=== PATIENT | female | born 1950 | race Caucasian/White ===

== ENCOUNTER 2017-07-29 13:18 | Emergency (ER) | payer OTHER ==
[~2017-07-29] VITALS: Wt 66.0 kg
[2017-07-29] MEDS ORDERED: ONDANSETRON 4 MG INJ IV STA (15:27)
[2017-07-29] MEDS ORDERED: morphine 4 MG/ML VIAL IV STA (15:27)
[2017-07-29] MEDS ORDERED: SOD CHLORIDE 0.9% 1,000 ML IV STA (15:27)
[2017-07-29] MEDS ORDERED: DIPHENHYDRAMINE 50 MG INJ IV ONE (15:30)
--- NOTE | 2017-07-29 15:40 | ERD ---
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 The patient describes at least 3 days of symptoms that include diffuse generalized abdominal pain, possibly worse the left lower quadrant with constipation. She describes 2 episodes of nonbloody nonbilious emesis. Prior surgical history is hysterectomy. She also describes dysuria urgency or frequency. She describes the abdominal pain is 8 out of 10 and constant. ROS All systems reviewed and are negative except as per history of present illness. Medications Home Meds Active Scripts Cephalexin* (Keflex*) 500 Mg Capsule, 500 MG PO BID for 7 Days, CAP Prov:DELORES MORRIS MD 07/29/17 Allergies Allergies: Coded Allergies: No Known Allergy (Verified Allergy, Unknown, 02/22/09) PMhx/Soc Hx Alcohol Use: No Hx Substance Use: No Hx Tobacco Use: No Smoking Status: Never smoker FmHx Family History: No diabetes Physical Exam Vitals Vital Signs Date Time Temp Pulse Resp B/P Pulse Ox O2 Delivery O2 Flow Rate FiO2 07/29/17 13:21 98.1 105 20 139/75 99 Physical Exam General: Well developed, well nourished, no acute distress Head: Normocephalic, atraumatic Eyes: Pupils equally reactive, EOM intact ENT: Moist mucous membranes Neck: Supple, no lymphadenopathy Respiratory: Lungs clear bilaterally, no distress Cardiovascular: RRR, no murmurs, rubs, or gallops Abdominal: Soft, inconsistent but generalized abdominal tenderness worse the left lower quadrant without peritonitis : Deferred MSK: No edema, no unilateral swelling, 5/5 strength Neurologic: Alert and oriented, moving all extremities, normal speech, no focal weakness, no cerebellar signs Skin: No rash Psych: Normal mood Result Diagram: 07/29/17 1525 07/29/17 1525 Results 24 hrs Laboratory Tests Test 07/29/17 15:25 White Blood Count 10.010^3/ul Red Blood Count 4.8410^6/ul Hemoglobin 14.1g/dl Hematocrit 41.0% Mean Corpuscular Volume 84.7fl Mean Corpuscular Hemoglobin 29.1pg Mean Corpuscular Hemoglobin Concent 34.4g/dl Red Cell Distribution Width 13.8% Platelet Count 21046^3/UL Mean Platelet Volume 10.0fl Neutrophils % 63.5% Lymphocytes % 22.7% Monocytes % 12.8% Eosinophils % 0.4% Basophils % 0.3% Nucleated Red Blood Cells % 0.0/100WBC Neutrophils # 6.410^3/ul Lymphocytes # 2.310^3/ul Monocytes # 1.310^3/ul Eosinophils # 0.010^3/ul Basophils # 0.010^3/ul Nucleated Red Blood Cells # 0.010^3/ul Prothrombin Time 12.8Sec Prothrombin Time Ratio 1.0 INR International Normalized Ratio 0.96 Activated Partial Thromboplast Time 33.3Sec Urine Color YELLOW Urine Clarity SLIGHTLY CLOUDY Urine pH 6.0 Urine Specific Shidler 1.025 Urine Ketones 2+mg/dL Urine Nitrite NEGATIVEmg/dL Urine Bilirubin NEGATIVEmg/dL Urine Urobilinogen 1+mg/dL Urine Leukocyte Esterase 2+Deandre/ul Urine Microscopic RBC 3/HPF Urine Microscopic WBC 32/HPF Urine Squamous Epithelial Cells FEW/HPF Urine Mucus FEW/HPF Urine Hemoglobin 1+mg/dL Urine Glucose NEGATIVEmg/dL Urine Total Protein 1+mg/dl Sodium Level 139mmol/L Potassium Level 3.6mmol/L Chloride Level 99mmol/L Carbon Dioxide Level 30mmol/L Anion Gap 14 Blood Urea Nitrogen 18mg/dl Creatinine 0.75mg/dl Glucose Level 110mg/dl Calcium Level 8.7mg/dl Total Bilirubin 1.0mg/dl Direct Bilirubin 0.00mg/dl Indirect Bilirubin 1.0mg/dl Aspartate Amino Transf (AST/SGOT) 36IU/L Alanine Aminotransferase (ALT/SGPT) 60IU/L Alkaline Phosphatase 117IU/L Troponin I 0.047ng/ml Total Protein 7.8g/dl Albumin 4.5g/dl Globulin 3.30g/dl Albumin/Globulin Ratio 1.36 Lipase 69U/L Current Medications Medications (Trade) Dose Ordered Sig/Ana Route PRN Reason Start Time Stop Time Status Last Admin Dose Admin Sodium Chloride (NS) 1,000 ml @ 1,000 mls/hr Q1H STAT IV 07/29/17 15:27 07/29/17 16:26 DC 07/29/17 15:42 Morphine Sulfate (morphine) 4 mg ONCE STAT IV 9/13/17 15:27 07/29/17 15:29 DC 07/29/17 15:42 Ondansetron HCl (Zofran Inj) 4 mg ONCE STAT IV 07/29/17 15:27 07/29/17 15:29 DC 07/29/17 15:42 Diphenhydramine HCl 25 mg 25 mg ONCE ONCE IV 07/29/17 15:30 07/29/17 15:31 DC 07/29/17 15:41 Ceftriaxone Sodium (Rocephin) 50 ml @ 100 mls/hr ONCE ONCE IVPB 07/29/17 17:00 07/29/17 17:29 DC Procedures/MDM EKG, MONITORS, & DIAGNOSTIC IMAGING: EKG: I reviewed and interpreted a 12-lead EKG. Rhythm: Normal sinus rhythm Ectopy: None Intervals: No abnormalities ST segments: No elevations or depressions T waves: No contiguous inversions CT abdomen and pelvis: IMPRESSION: 1. Circumferential wall edema involving the ascending colon with mild pericolonic fat stranding. The findings may represent infectious or inflammatory colitis. 2. Gallbladder wall edema with questionable minimal pericholecystic fat stranding. If there is concern for acute cholecystitis, consider HIDA can. 3. Lumbar degenerative enthesopathy as above. 4. 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 5. Small pericardial effusion. RPTAT: ELANA Gallbladder ultrasound: IMPRESSION: Gallbladder wall thickening appears to be secondary to contraction. No gallstones are seen. If clinical concern for acalculous cholecystitis HIDA scan can be obtained for further evaluation. RPTAT: AADD LAB INTERPRETATION: Urinary tract infection noted, normal bilirubin, normal LFTs, normal lipase, no evidence of hepatobiliary obstruction, normal white count, no left shift MEDICAL DECISION MAKING: The patient presents with generalized abdominal pain nausea vomiting and constipation with an abdominal surgical history. There is a very broad differential that includes small bowel obstruction the lower clinical concern for the process. Consider diverticulitis. This is possibly related to constipation. The patient is a difficult historian. She additionally describes some pruritus. Consider possible hepatobiliary process. Given the patient's difficulty localizing symptoms with generalized abdominal pain and surgical history with the age of 67 CT imaging would be appropriate. The patient will benefit from laboratory testing, symptom control and reevaluation. Very low clinical concern for cardiac etiology but EKG and troponin might be reasonable given the patient's age. ER COURSE: The patient was given IV fluids and pain medication and Benadryl. The patient is resting comfortably. On repeat examination the patient describes complete resolution of symptoms. On repeat abdominal exam she has mild suprapubic tenderness but no tenderness to the right upper quadrant or right lower quadrant. She is a negative Nayak sign. Her diagnostic imaging did reveal gallbladder wall thickening but this is nonspecific. The patient has absolutely no tenderness to the right upper quadrant of the abdomen. She has no leukocytosis no left shift no evidence of hepatobiliary obstruction on LFT profile. I do not believe this is consistent with a calculus cholecystitis or cholecystitis at all. I do not believe the patient requires an emergent HIDA scan. The patient does have a urinary tract infection and was given ceftriaxone in the emergency department will be discharged home on Keflex. She was advised to return for any worsening symptoms including right upper quadrant abdominal pain or fever. She was also advised that she may need to see a general surgeon if symptoms persist or if the patient starts to develop symptomatic gallbladder disease. At this time the patient is resting comfortably, asymptomatic and ready for discharge. I kept the patient and/or family informed of laboratory and diagnostic imaging results throughout the emergency room course. DISPOSITION PLAN: We discussed follow up with the patient's primary care doctor within 24 to 48 hours as needed. We also discussed return to the emergency room for worsening symptoms or worsening condition. Outpatient referral: [None required] Discharge Medications: Keflex Departure Diagnosis: Primary Impression: UTI (urinary tract infection) Urinary tract infection type: acute cystitis Hematuria presence: without hematuria Qualified Code: N30.00 - Acute cystitis without hematuria Additional Impression: Abdominal pain Abdominal location: generalized Qualified Code: R10.84 - Generalized abdominal pain Condition: Stable DELORES MORRIS MD Jul 29, 2017 15:40
[2017-07-29 15:58] LABS: BASOPHILS % 0.3 % (0.0-2.0); EOSINOPHILS % 0.4 % (0.0-7.0); HEMOGLOBIN 14.1 g/dl (12.0-16.0); LYMPHOCYTES # 2.3 10^3/ul (0.8-2.9); LYMPHOCYTES % 22.7 % (15.0-51.0); MEAN CORPUSCULAR HEMOGLOBIN 29.1 pg (29.0-33.0); MEAN CORPUSCULAR HGB CONC 34.4 g/dl (32.0-37.0); MEAN CORPUSCULAR VOLUME 84.7 fl (82.0-101.0); MONOCYTE # 1.3 10^3/ul (0.3-0.9); MONOCYTES % 12.8 % (0.0-11.0); NEUTROPHIL # 6.4 10^3/ul (1.6-7.5); NEUTROPHILS % 63.5 % (39.0-77.0); PLATELET COUNT 146 10^3/UL (140-415); RED BLOOD COUNT 4.84 10^6/ul (4.20-5.40); RED CELL DISTRIBUTION WIDTH 13.8 % (11.5-14.5)
[2017-07-29 16:16] LABS: INR 0.96; PROTIME 12.8 Sec (12.2-14.2)
--- NOTE | 2017-07-29 16:16 | RADRPT ---
PROCEDURE: Right upper quadrant abdominal ultrasound. CLINICAL INDICATION: Abdominal pain TECHNIQUE: Ocampo scale and color doppler ultrasound images of the right upper quadrant of the abdom en. COMPARISON: None FINDINGS: Pancreas: Visualized portions appear of normal echogenicity without focal lesions. Liver: Morphology:Normal in size. Contour:Normal, no evidence of nodularity. Echogenicity: Normal. Focal lesions:None. Main portal vein: Patent with hepatopetal flow. Biliary System: Gallbladder wall: Mild wall thickening appears to be secondary to contraction. No definite evidence of gallbladder wall edema. Gallstones: None. Intrahepatic bile ducts: Normal caliber. Common bile duct diameter (mm): 5.7 Kidneys: Right length (cm) : 9.2 Right cortical thickness: Normal. Echogenicity: Normal. Hydronephrosis: None. Renal calculi: None. Focal lesions: None. Free fluid/ascites: None. Abdominal aorta: Normal caliber of the visualized segments. Other findings: None. IMPRESSION: Gallbladder wall thickening appears to be secondary to contraction. No gallstones are seen. If clinical concern for acalculous cholecystitis HIDA scan can be obtained for further evaluation. RPTAT: AADD .Christiano Dewitt MD, MD Date Time Electronically viewed and signed by .Christiano Dewitt MD, on 07/29/2017 16:16 .B/
[2017-07-29 16:17] LABS: PARTIAL THROMBOPLASTIN TIME 33.3 Sec (25.0-35.0)
[2017-07-29 16:18] LABS: ALBUMIN 4.5 g/dl (3.3-4.9); ALBUMIN/GLOBULIN RATIO 1.36; CALCIUM 8.7 mg/dl (8.4-10.2); CREATININE 0.75 mg/dl (0.44-1.00); POTASSIUM 3.6 mmol/L (3.5-5.1); TOTAL PROTEIN 7.8 g/dl (6.1-8.1)
[2017-07-29 16:25] LABS: ADD UMIC YES; UR ASCORBIC ACID NEGATIVE (NEGATIVE); UR BILIRUBIN (Dip) NEGATIVE (NEGATIVE); UR BLOOD (Dip) 1+ mg/dL (NEGATIVE); UR CLARITY SLIGHTLY CLOUDY (CLEAR); UR COLOR YELLOW (YELLOW); UR GLUCOSE (Dip) NEGATIVE (NEGATIVE); UR KETONES (Dip) 2+ mg/dL (NEGATIVE); UR LEUKOCYTE ESTERASE (Dip) 2+ Leu/ul (NEGATIVE); UR MUCUS FEW /HPF (NONE SEEN); UR NITRITE (Dip) NEGATIVE (NEGATIVE); UR RBC 3 /HPF (0-5); UR SPECIFIC GRAVITY (Dip) 1.025 (1.003-1.030); UR SQUAMOUS EPITHELIAL CELL FEW /HPF (FEW); UR TOTAL PROTEIN (Dip) 1+ mg/dl (NEGATIVE); UR UROBILINOGEN (Dip) 1+ mg/dL (NEGATIVE)
[2017-07-29 16:29] LABS: TROPONIN-I 0.047 ng/ml (0.00-0.12)
[2017-07-29] MEDS ORDERED: CEFTRIAXONE 1 GM/50 ML (PMX) 50 ML IVPB ONE (17:00)
[2017-07-29] MEDS ORDERED: CEPH-443 PO (17:13)
--- NOTE | 2017-07-29 17:15 | RADRPT ---
PROCEDURE: CT Abdomen and Pelvis without contrast. CLINICAL INDICATION: Abdominal pain. TECHNIQUE: CT scan of the abdomen and pelvis without contrast was performed on a multidetector hig h-resolution CT scanner. The patient was scanned without intravenous contrast. Coronal and sagittal reformatted images were obtained from the axial source images. Images were reviewed on a high-resol [employer] PACS workstation. One or more of the following dose reduction techniques were used: Automated exposure control, adjustment of the mA and/or kV according to patient size, use of iterative recon struction technique. The total exam CTDI equals 11.51 mGy and the total exam DLP equals 612.8 mGy-c m. COMPARISON: Abdominal ultrasound from the same day. FINDINGS: CT abdomen: The lung bases are clear of acute infiltrates. The heart size is normal. There is a small pericardi al effusion.. A 1 cm hypodense lesion within the right hepatic lobe is too small to characterize but likely repres ents a cyst or hemangioma. Otherwise, the liver is normal in size and density without focal mass or intrahepatic biliary dilatation. The spleen is normal in size and homogeneous in density. The stom ach is grossly unremarkable. The pancreas as visualized is normal. The gallbladder wall appears ed ematous with minimal question of pericholecystic inflammatory change. No radio dense gallstones are seen. The biliary tree is nondilated. The adrenal glands are symmetric and normal. The kidneys are symmetrically unremarkable as well. No renal calculus or obstructive uropathy or mass lesion is se en. The aorta is of normal caliber. There is no retroperitoneal lymphadenopathy. The kanika hepatis reg ion is clear. The small bowel and mesentery, as visualized, are unremarkable. Circumferential wall edema is seen within the ascending colon with minimal pericolonic fat stranding CT pelvis: The small bowel loops situated within the pelvis are unremarkable. The uterus is surgically absent. The pelvic sidewalls and inguinal regions are clear. The sigmoid colon and rectum are unremarkabl e. The appendix is normal. No mass, lymphadenopathy, or free fluid is seen. No acute inflammation i s seen. Subcutaneous fat stranding in the bilateral renal lesions likely secondary to injections. There is grade 1 anterolisthesis of L5-S1 with associated chronic bilateral pars defects. There is d egenerative changes are present at L4-L5 with associated moderate central canal narrowing. No osteo lytic or osteoblastic lesion is detected. IMPRESSION: 1. Circumferential wall edema involving the ascending colon with mild pericolonic fat stranding. Th e findings may represent infectious or inflammatory colitis. 2. Gallbladder wall edema with questionable minimal pericholecystic fat stranding. If there is conc olamide for acute cholecystitis, consider HIDA can. 3. Lumbar degenerative enthesopathy as above. 4. 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 5. Small pericardial effusion. RPTAT: JJ .Bert Power MD, MD Date Time Electronically viewed and signed by .Bert Power MD, on 07/29/2017 17:15 .A/
[2017-07-29 17:55] VITALS: BP 130/80; PULSE 89; RESP 20
== END 2017-07-29 17:56 | disposition home or self-care (01) ==
LOC: E/R 13:18
DX: N30.00 Acute cystitis without hematuria (principal); R40.2252 Coma scale, best verbal response, oriented, at arrival to emergency department; R11.10 Vomiting, unspecified; R40.2142 Coma scale, eyes open, spontaneous, at arrival to emergency department; R40.2362 Coma scale, best motor response, obeys commands, at arrival to emergency department
CPT/HCPCS: 36415; 74176; 76705; 80053; 81001; 83690; 84484; 85025; 85610; 85730; 93005; 96374; 96375; 99285; J0696; J1200; J2270; J2405; J7030